=== PATIENT | female | born 1980 ===

== ENCOUNTER 2023-12-15 06:10 | Day surgery (SDC) | payer OTHER ==
[2023-12-13 12:27] LABS: HEMATOCRIT 37.1 % (36.0-45.00); HEMOGLOBIN 12.4 g/dL (12.0-15.00); MEAN CELL VOLUME 83.5 fL (80.00-100.00); MEAN CORPUSCULAR HEMOGLOBIN 27.9 pg (27.00-32.0); MEAN CORPUSCULAR HGB CONC 33.4 g/dl (32.0-36.0); PLATELET COUNT 300 K/uL (150-450); RED BLOOD COUNT 4.44 M/uL (4.00-6.00)
[2023-12-13 12:38] LABS: PH,URINE 5.5 (5.0-8.0); URINE APPEARANCE Clear; URINE BILIRRUBIN Negative (NEGATIVE); URINE BLOOD Negative; URINE COLOR Yellow; URINE GLUCOSE Negative (NEGATIVE); URINE LEUKOCYTE Negative; URINE NITRATE Negative; URINE PROTEIN Negative (NEGATIVE); URINE UROBILINOGEN 0.2 E.U./dl
[2023-12-13 12:39] LABS: URINE EPITHELIAL CELLS 42.7 uL (0.0-38.8); URINE WBC 22.7 uL (0.0-23.2)
[2023-12-13 12:56] LABS: URINE RBC 1.2 uL (0.0-20.8)
[2023-12-13 13:02] LABS: ALBUMIN 3.7 gm/dL (3.4-5.0); BILIRUBIN TOTAL 0.6 mg/dL (0.3-1.2); CALCIUM 9.5 mg/dL (8.5-10.1); CREATININE SERUM 0.7 mg/dL (0.55-1.02); GFR 91.76; GLOBULINA 4.3 G/DL (2.4-3.5); POTASSIUM 3.92 mEq/L (3.5-5.1)
[2023-12-13 13:07] LABS: INR 1.04; PARTIAL THROMBOPLASTIN TIME 25.9 SECONDS (22.0-34.0); PROTHROMBIN TIME 10.9 SECONDS (9.0-11.5)
[~2023-12-15] VITALS: Ht 180.3 cm; Wt 108.9 kg
[2023-12-15] MEDS ORDERED: CEFAZOLIN SODIUM 1,000 MG VIAL ONE (12:16)
[2023-12-15] MEDS ORDERED: POVIDONE-IODINE 118 ML BOTT TOP ONE ×2 (12:16→13:15)
[2023-12-15] MEDS ORDERED: CEFAZOLIN SODIUM 1,000 MG VIAL IV ONE (13:15)
[2023-12-15] MEDS ORDERED: MORGIDOX100 MG PO (14:17)
[2023-12-15] MEDS ORDERED: IBU600 MG PO (14:18)
[2023-12-15] MEDS ORDERED: KETOROLAC TROMETHAMINE 30 MG VIAL ONE (17:12)
== END 2023-12-15 18:35 | disposition home or self-care (01) ==
LOC: CIR.AMB 06:10
PROVIDERS: ATTEND Obstetrics & Gynecology
DX: N92.0 Excessive and frequent menstruation with regular cycle (principal); N84.0 Polyp of corpus uteri; D25.0 Submucous leiomyoma of uterus; Z20.822 Contact with and (suspected) exposure to COVID-19